=== PATIENT | male | born 1940 | race Caucasian/White ===

== ENCOUNTER 2016-12-16 11:14 | Outpatient (CLI) | payer MEDICARE, OTHER ==
[2016-12-16 12:18] LABS: Hematocrit 46.5 % (42.0-52.0); Red Blood Cell (RBC) Count 5.04 mill/uL (4.70-6.10); White Blood Cell (WBC) Count 5.5 thou/uL (4.8-10.8)
[2016-12-16 12:38] LABS: Anion Gap 11 mmol/L (10-20); BUN (Urea Nitrogen) 14 mg/dL (8.4-25.7); Calc. Creatinine Clearance 0 mL/min (70-130); Calcium 9.6 mg/dL (7.8-10.44); Carbon Dioxide 28 mmol/L (23-31); Chloride 104 mmol/L (98-107); Estimated GFR-MDRD 62
== END 2016-12-16 11:15 | disposition home or self-care (01) ==
LOC: LABBT 11:14
PROVIDERS: ATTEND Neurological Surgery
DX: Z01.818 Encounter for other preprocedural examination (principal); M48.061 Spinal stenosis, lumbar region without neurogenic claudication
CPT/HCPCS: 80048; 85027; 93005; 93010

== ENCOUNTER 2016-12-31 05:35 | Day surgery (SDC) | payer MEDICARE, OTHER ==
[2016-12-31] MEDS ORDERED: CEFAZOLIN/Water 2 GM/20 ML SYRINGE ONE (06:19)
[2016-12-31] MEDS ORDERED: Fentanyl 250 MCG/5 ML VIAL ONE (06:31)
[2016-12-31] MEDS ORDERED: ePHEDrine/0.9% NaCl/PF SYRINGE 50 mg/10 ml ONE (07:30)
[2016-12-31] MEDS ORDERED: Lidocaine 1% PF 5 ML VIAL ONE (07:30)
[2016-12-31] MEDS ORDERED: Glycopyrrolate 0.4 MG/ 2 ML VIAL ONE (07:30)
[2016-12-31] MEDS ORDERED: Dexamethasone 20 MG/5 ML VIAL ONE (07:30)
[2016-12-31] MEDS ORDERED: Propofol 200 MG/20 ML VIAL ONE (07:30)
[2016-12-31] MEDS ORDERED: Ondansetron HCl/PF 4 MG/2 ML Vial ONE (07:30)
--- NOTE | 2016-12-31 08:51 | OP ---
DATE OF PROCEDURE: 12/31/2016 SURGEON: Guillermo Milan M.D. INTERNET SALESPERSON: [employer]. PROCEDURE: L3-4 laminectomy. PROCEDURE IN DETAIL: The patient was brought into the operating room, intubated. He was rolled in the prone position on gel-filled chest rolls. An incision was made exposing L3 and L4 and our level was confirmed by x-ray. We performed complete L4 and inferior L3 laminectomies, completely decompr essing the neural elements. The wound was then extensively irrigated, immaculate hemostasis was sec ured. Vancomycin powder was applied and the wound was closed in anatomic layers.
[2016-12-31] MEDS ORDERED: Tamsulosin HCl 0.4 MG CAP ONE (09:05)
--- OUTSIDE RECORDS SUMMARY | 2017-01-01 00:26 | XMS | Clinical Summary ---
:1940 Author Organization [facility] Address [address] [place] [address] Phone Care Team Providers Name Role Phone , Primary Care Provider Unavailable Allergies Not on File Current Medications Not on file Active Problems Not on file Social History Tobacco Use Types Packs/Day Years Used Date Never Assessed Sex Assigned at Date Recorded Not on file Last Filed Vital Signs Not on file Plan of Treatment Not on file Results Not on filefrom Last 3 Months
== END 2016-12-31 10:30 | disposition home or self-care (01) ==
LOC: SDC 05:35
PROVIDERS: ATTEND Neurological Surgery
PROC: 00NY0ZZ Release Lumbar Spinal Cord, Open Approach (ICD-10-PCS; principal; 2016-12-31)
DX: M48.061 Spinal stenosis, lumbar region without neurogenic claudication (principal); Z90.49 Acquired absence of other specified parts of digestive tract; Z96.653 Presence of artificial knee joint, bilateral; Z98.890 Other specified postprocedural states
CPT/HCPCS: 76001; J1100; J2001; J2405; J2704; J3010; J3370